=== PATIENT | female | born 1980 | race Two or more races ===

== ENCOUNTER 2016-06-08 00:35 | Emergency (ER) | payer MEDICAID ==
[~2016-06-08] VITALS: Ht 167.6 cm; Wt 65.8 kg
[2016-06-08] MEDS ORDERED: ONDANSETRON HCL/PF 4 MG/2 ML VIAL ONE (00:58)
[2016-06-08 01:17] LABS: BASOPHILS # (AUTO) 0.1 /CMM (0.0-0.2); BASOPHILS % (AUTO) 0.5 % (0.0-2.0); DIFF TOTAL % 100 %; EOSINOPHILS # (AUTO) 0.2 /CMM (0.0-0.7); EOSINOPHILS % (AUTO) 1.7 % (0.0-6.0); HEMATOCRIT 41 % (33-45); HEMOGLOBIN 13.3 g/dL (11.5-14.8); LYMPHOCYTES % (AUTO) 50.2 % (20.0-44.0); MEAN CORPUSCULAR HEMOGLOBIN 27 PG (26.0-33.0); MEAN CORPUSCULAR HGB CONC 32 g/dl (31.0-36.0); MEAN CORPUSCULAR VOLUME 85 fL (82-100); MONOCYTES % (AUTO) 8.6 % (2.0-12.0); NEUTROPHILS # (AUTO) 4.7 /CMM (1.8-8.9); PLATELET COUNT (AUTO) 270 /CMM (150-450); RED BLOOD CELL COUNT(AUTO) 4.84 MIL/uL (4.0-5.2)
[2016-06-08 01:26] LABS: CREATININE 0.7 mg/dL (0.6-1.3); POTASSIUM 3.1 mmol/L (3.5-5.1)
[2016-06-08 01:30] LABS: INR 0.94 (0.87-1.13); PROTHROMBIN TIME 10.1 SECS (9.5-12.7)
[2016-06-08] MEDS ORDERED: METOCLOPRAMIDE HCL 10 MG/2 ML VIAL ONE (01:31)
[2016-06-08] MEDS ORDERED: IV NS 0.9% 0 ML IV ONE (01:31)
[2016-06-08] MEDS ORDERED: IV SET PRIMARY 1 EA INFUS.SET MC ONE (01:31)
[2016-06-08 01:32] LABS: ALBUMIN 3.9 g/dL (3.4-5.0); BILIRUBIN,TOTAL 0.2 mg/dL (0.2-1.0); TOTAL PROTEIN, SERUM 7.8 g/dL (6.4-8.2)
[2016-06-08 01:33] LABS: INDIRECT BILIRUBIN 0.2 mg/dL (0.0-1.1); SALICYLATE 0.9 mg/dL (2.8-20.0)
[2016-06-08] MEDS ORDERED: AMMONIA NASAL INHALATION 1 EA PACK NAS ONE (01:33)
[2016-06-08 01:36] LABS: KETONES,URINE NEGATIVE (NEGATIVE); LEUKOCYTE ESTERASE ,URINE NEGATIVE (NEGATIVE)
[2016-06-08 01:47] LABS: CANNABINOID, URINE NEGATIVE (NEGATIVE); PHENCYCLIDINE SCREEN,URINE NEGATIVE (NEGATIVE)
[2016-06-08] MEDS ORDERED: METOCLOPRAMIDE HCL 10 MG/2 ML VIAL IV ONE (02:00)
[2016-06-08 02:04] LABS: ADD UA MICROSCOPIC YES
[2016-06-08 02:09] LABS: ADD URINE CULTURE NO; WBC,URINE 0-2 /HPF (0-3)
[2016-06-08 03:34] VITALS: BP 115/70
== END 2016-06-09 02:18 | disposition home or self-care (01) ==
LOC: ER 00:36
DX: F10.129 Alcohol abuse with intoxication, unspecified (principal); F45.8 Other somatoform disorders; R41.82 Altered mental status, unspecified
CPT/HCPCS: 36415; 70450; 71010; 80048; 80076; 80305; 80329; 81001; 82962; 84703; 85025; 85730; 93005; 96374; 99285; A4606 ×2; G0480 ×2; J2405; J2765; Z7610 ×2; 81000-TC; G6039-TC; J7030